=== PATIENT | male | born 1955 | race Caucasian/White ===

== ENCOUNTER 2023-07-22 01:14 | Inpatient (IN) | payer MEDICARE, OTHER ==
[~2023-07-22] VITALS: Ht 160 cm; Wt 67.1 kg
[2023-07-22] MEDS ORDERED: DULA0.75 SQ (01:40)
[2023-07-22] MEDS ORDERED: SITA100T PO (01:40)
[2023-07-22] MEDS ORDERED: LISI10TA29 PO (01:40)
[2023-07-22] MEDS ORDERED: TAMS-3 PO (01:40)
[2023-07-22] MEDS ORDERED: MELO-107 PO (01:40)
[2023-07-22] MEDS ORDERED: ESCI10TA PO (01:40)
[2023-07-22] MEDS ORDERED: METF-442 PO (01:40)
[2023-07-22] MEDS ORDERED: OMEP20TA5 PO (01:40)
[2023-07-22] MEDS ORDERED: PIOG45TA5 PO (01:40)
[2023-07-22] MEDS ORDERED: GABA-532 PO (01:40)
[2023-07-22] MEDS ORDERED: DOCU100C36 PO (01:40)
[2023-07-22] MEDS ORDERED: TRAZ-182 PO (01:40)
[2023-07-22] MEDS ORDERED: ATOR20TA PO (01:40)
[2023-07-22] MEDS ORDERED: ESCI-9 PO (01:40)
[2023-07-22] MEDS ORDERED: CHOL200010 PO (01:40)
[2023-07-22] MEDS ORDERED: AZEL6DRO5 OP (01:40)
[2023-07-22] MEDS ORDERED: POTASSIUM CHLORIDE 20 MEQ TAB.PRT.SR ONE (01:52)
[2023-07-22] MEDS: POTASSIUM CHLORIDE 20 MEQ TAB.PRT.SR PO ONE (01:58)
[2023-07-22] MEDS ORDERED: ACETAMINOPHEN 325 MG TABLET PO PRN (05:30)
[2023-07-22] MEDS ORDERED: CLONAZEPAM 0.5 MG TABLET PO PRN (05:30)
[2023-07-22] MEDS ORDERED: MAGNESIUM HYDROXIDE 30 ML LIQUID UDC PO PRN (05:30)
[2023-07-22] MEDS ORDERED: MAG HYDROX/AL HYDROX/SIMETH 30 ML LIQUID UDC PO PRN (05:30)
[2023-07-22] MEDS ORDERED: TEMAZEPAM 7.5 MG CAPSULE PO PRN (05:30)
[2023-07-22 05:32] VITALS: BP 164/101; TEMP 98.1; O2SAT 96
[2023-07-22] MEDS: BLOOD SUGAR DIAGNOSTIC 1 EACH STRIP VI ONE (06:01)
[2023-07-22] MEDS: CLONIDINE HCL 0.1 MG TABLET PO PRN (06:26)
[2023-07-22 07:48] VITALS: BP 145/46; TEMP 98.4; O2SAT 98
[2023-07-22] MEDS: NICOTINE 7 MG/24HR PATCH TD SCH (09:49)
[2023-07-22 15:33] VITALS: BP_SYST 136; BP_SYST 157; BP_DIAS 52; BP_DIAS 61; TEMP 98.4; O2SAT 96; O2SAT 98
[2023-07-22] MEDS ORDERED: DEXTROSE 50% 50 ML DISP.SYRIN IV PRN (15:45)
[2023-07-22] MEDS ORDERED: hydrALAZINE HCL 25 MG TABLET PO PRN (15:45)
[2023-07-22] MEDS: LORAZEPAM 0.5 MG TABLET PO PRN (16:06)
[2023-07-22] MEDS: BLOOD SUGAR DIAGNOSTIC 1 EACH STRIP VI SCH (16:30)
[2023-07-22] MEDS: METFORMIN HCL 500 MG TABLET PO SCH (16:49)
[2023-07-22 20:30] VITALS: BP 92/56; TEMP 98; O2SAT 100
[2023-07-22] MEDS: TAMSULOSIN HCL 0.4 MG CAP.SR.24H PO SCH (21:24)
[2023-07-22] MEDS: ATORVASTATIN 20 MG TABLET PO SCH (21:24)
[2023-07-22] MEDS: TRAZODONE 50 MG TABLET PO SCH (21:24)
[2023-07-22] MEDS: INSULIN REGULAR, HUMAN 300 UNIT/3 ML VIAL SQ PRN (21:27)
[2023-07-22 22:00] VITALS: BP 129/54
[2023-07-22] MEDS: GABAPENTIN 300 MG CAPSULE PO SCH (22:53)
[2023-07-23] MEDS: PANTOPRAZOLE SODIUM 40 MG TABLET.DR PO SCH (06:36)
[2023-07-23 07:57] VITALS: BP 104/51; TEMP 97.8; O2SAT 96
[2023-07-23 08:39] LABS: BASOPHILS # (AUTO) 0.1 K/UL (0.0-0.2); BASOPHILS % (AUTO) 1.3 % (0.0-2.0); EOSINOPHILS # (AUTO) 0.2 K/uL (0.0-0.7); EOSINOPHILS % (AUTO) 3.4 % (0.0-7.0); HEMATOCRIT 39.6 % (36.7-47.1); HEMOGLOBIN 13.7 g/dL (12.5-16.3); LYMPHOCYTES # (AUTO) 1.4 K/uL (0.8-4.8); LYMPHOCYTES % (AUTO) 22.8 % (20.5-51.5); MEAN CORPUSCULAR HEMOGLOBIN 30.8 uug (23.8-33.4); MEAN CORPUSCULAR HGB CONC 35 g/dL (32.5-36.3); MEAN CORPUSCULAR VOLUME 88.7 fL (73.0-96.2); MONOCYTES # (AUTO) 0.5 K/uL (0.1-1.30); MONOCYTES % (AUTO) 8.6 % (0.0-11.0); NEUTROPHILS % (AUTO) 63.9 % (38.5-71.5); PLATELET COUNT (AUTO) 262 K/uL (152-348); RED BLOOD CELL COUNT(AUTO) 4.46 MIL/uL (4.06-5.63); RED CELL DISTRIBUTION WIDTH 14.4 % (12.1-16.2); WHITE BLOOD COUNT (AUTO) 6.3 K/uL (3.6-10.2)
[2023-07-23] MEDS ORDERED: Medication Not On Formulary EA (Sitagliptin Phosphate (Januvia) 100 MG) PO SCH (09:00)
[2023-07-23] MEDS ORDERED: Medication Not On Formulary EA (Omeprazole 20 MG) PO SCH (09:00)
[2023-07-23] MEDS: LISINOPRIL 10 MG TABLET PO SCH (09:00)
[2023-07-23 09:01] LABS: ALBUMIN 3.1 g/dL (3.4-5.0); BILIRUBIN,TOTAL 0.4 mg/dL (0.2-1.0); CALCIUM 8.8 mg/dL (8.5-10.1); CREATININE 0.7 mg/dL (0.6-1.3); MAGNESIUM 1.7 mg/dL (1.8-2.4); POTASSIUM 4.2 mmol/L (3.5-5.1); TOTAL PROTEIN, SERUM 6.2 g/dL (6.4-8.2)
[2023-07-23] MEDS: DOCUSATE SODIUM 100 MG CAPSULE PO SCH (09:02)
[2023-07-23] MEDS: CHOLECALCIFEROL 1,000 UNIT TABLET PO SCH (09:02)
[2023-07-23] MEDS: ESCITALOPRAM OXALATE 10 MG TABLET PO SCH (09:03)
[2023-07-23] MEDS: MELOXICAM 7.5 MG TABLET PO SCH (09:04)
[2023-07-23] MEDS: PIOGLITAZONE HCL 15 MG TABLET PO SCH (09:04)
[2023-07-23 09:06] LABS: THYROID STIMULATING HORMONE 0.758 mIU/mL (0.358-3.740)
[2023-07-23 09:09] LABS: DIFFERENTIAL COMMENT 1
[2023-07-23] MEDS: LINAGLIPTIN 5 MG TABLET PO SCH (09:09)
[2023-07-23 15:33] VITALS: BP 136/46; TEMP 98; O2SAT 96
[2023-07-23 20:00] VITALS: BP 140/40; TEMP 98; O2SAT 95
[2023-07-24 07:30] VITALS: BP 134/90; TEMP 97.8; O2SAT 98
[2023-07-24 15:27] VITALS: BP 134/44; TEMP 98; O2SAT 98
[2023-07-24 20:00] VITALS: BP 156/57; TEMP 97.8; O2SAT 98
[2023-07-24] MEDS: ATORVASTATIN 10 MG TABLET PO SCH (20:55)
[2023-07-24] MEDS: INSULIN GLARGINE,HUM 300 UNITS/3 ML CARTRIDGE SQ SCH (21:01)
[2023-07-25 07:30] VITALS: BP 161/75; TEMP 98; O2SAT 98
[2023-07-25 15:11] VITALS: BP 130/50; TEMP 98; O2SAT 98
[2023-07-25 20:00] VITALS: BP 155/54; TEMP 97.9; O2SAT 96
[2023-07-26 07:57] VITALS: BP 127/53; TEMP 98; O2SAT 99
[2023-07-26 16:53] VITALS: BP 149/53; TEMP 98; O2SAT 98
[2023-07-26 20:00] VITALS: BP 124/50; TEMP 97.8; O2SAT 97
[2023-07-27 08:45] VITALS: BP 119/51; TEMP 98.7; O2SAT 98
[2023-07-27 16:11] VITALS: BP 140/53; TEMP 98.6; O2SAT 99
[2023-07-27 20:08] VITALS: BP 146/52; TEMP 98.3; O2SAT 99
[2023-07-28 07:55] VITALS: BP 123/61; TEMP 98; O2SAT 98
[2023-07-28 16:39] VITALS: BP 133/52; TEMP 98; O2SAT 98
[2023-07-28 19:52] VITALS: BP 130/56; TEMP 98.1; O2SAT 98
[2023-07-29 09:26] VITALS: BP 117/50; TEMP 98; O2SAT 94
== END 2023-07-29 11:46 | DRG 885 ==
LOC: ER 01:21 → GPS 01:50
PROVIDERS: ADMIT Psychiatry & Neurology Psychiatry; ATTEND Internal Medicine
DX: F33.2 Major depressive disorder, recurrent severe without psychotic features (principal); E11.65 Type 2 diabetes mellitus with hyperglycemia; R45.851 Suicidal ideations; E44.1 Mild protein-calorie malnutrition; T65.92XD Toxic effect of unspecified substance, intentional self-harm, subsequent encounter; F17.210 Nicotine dependence, cigarettes, uncomplicated; Z79.84 Long term (current) use of oral hypoglycemic drugs; F10.21 Alcohol dependence, in remission; Z79.899 Other long term (current) drug therapy; N40.0 Benign prostatic hyperplasia without lower urinary tract symptoms; E66.8 Other obesity; Z68.26 Body mass index [BMI] 26.0-26.9, adult; Z71.3 Dietary counseling and surveillance; L89.892 Pressure ulcer of other site, stage 2; I10 Essential (primary) hypertension; R00.1 Bradycardia, unspecified; E11.42 Type 2 diabetes mellitus with diabetic polyneuropathy; G89.29 Other chronic pain; M54.9 Dorsalgia, unspecified; E88.09 Other disorders of plasma-protein metabolism, not elsewhere classified; E78.5 Hyperlipidemia, unspecified; M15.9 Polyosteoarthritis, unspecified
CPT/HCPCS: 36415; 83735; 84100; 84443; 85025; 93005; A4606; A4663; A9150; J1815